=== PATIENT | female | born 1995 | race African-American/Black ===

== ENCOUNTER 2018-04-29 12:54 | Emergency (ER) | payer MEDICAID ==
[~2018-04-29] VITALS: Ht 165.1 cm; Wt 80.0 kg
[2018-04-29 14:38] LABS: BASOPHILS % 0.3 % (0.0-2.0); EOSINOPHILS % 1.8 % (0.0-5.0); HEMATOCRIT. 35.2 % (36.0-48.0); HEMOGLOBIN. 12.2 g/dL (12.0-16.0); LYMPHOCYTES % 14.1 % (20.0-50.0); MEAN CORPUSCULAR HEMOGLOBIN 32.6 pg (28.0-32.0); MEAN CORPUSCULAR VOLUME 94.1 fL (81.0-99.0); MEAN PLATELET VOLUME 7.6 fl (7.4-10.4); MONOCYTES % 9.5 % (2.0-8.0); NEUTROPHILS % 74.3 % (40.0-76.0); PLATELET 310 x1000/uL (130-400); RED BLOOD CELL COUNT 3.74 mill/uL (4.2-5.4); RED CELL DISTRIBUTION WIDTH 12.2 % (11.6-14.6)
[2018-04-29 14:43] LABS: PROTHROMBIN TIME 10.4 sec (9.1-11.1)
[2018-04-29 14:45] LABS: CHLORIDE 103 mEq/L (98-107)
[2018-04-29 15:08] LABS: B-HCG QUANTITATIVE 47057 mIU/mL (<3)
[2018-04-29 15:16] LABS: CLARITY URINE CLOUDY (CLEAR); COLOR URINE RED (YELLOW); KETONES URINE NEGATIVE (NEGATIVE); LEUKOCYTE ESTERASE URINE 3+ (NEGATIVE); NITRITE URINE NEGATIVE (NEGATIVE); OCCULT BLOOD URINE 3+ (NEGATIVE); PH URINE 6.5 (4.5-8.0); PROTEIN URINE TRACE (NEGATIVE); SPECIFIC GRAVITY URINE 1.006 (1.005-1.030); UROBILINOGEN URINE 0.2 E.U./dL (0.2-1.0)
[2018-04-29 15:33] LABS: *AMPHETAMINES SCREEN URINE NEGATIVE (NEGATIVE); *BARBITURATES SCREEN URINE NEGATIVE (NEGATIVE); *BENZODIAZEPINES SCREEN URINE NEGATIVE (NEGATIVE)
[2018-04-29 15:34] LABS: *COCAINE SCREEN URINE NEGATIVE (NEGATIVE); CANNABINOID URINE SCREEN NEGATIVE (NEGATIVE); METHADONE URINE SCREEN NEGATIVE (NEGATIVE); OPIATES URINE SCREEN NEGATIVE (NEGATIVE); PHENCYCLIDINE URINE SCREEN NEGATIVE (NEGATIVE)
[2018-04-29] MEDS ORDERED: METRONIDAZOLE 500MG TABLET PO ONE (17:15)
[2018-04-29 17:50] VITALS: BP 118/57
== END 2018-04-29 17:50 | disposition home or self-care (01) ==
LOC: ER 15:38
DX: O20.0 Threatened abortion (principal); O26.891 Other specified pregnancy related conditions, first trimester; A59.9 Trichomoniasis, unspecified; O23.41 Unspecified infection of urinary tract in pregnancy, first trimester; Z3A.13 13 weeks gestation of pregnancy
CPT/HCPCS: 36415; 76801; 80048; 80305; 81025; 84702; 86850; 86900; 99285; J7030

== ENCOUNTER 2019-01-01 18:59 | Emergency (ER) | payer MEDICAID ==
[~2019-01-01] VITALS: Ht 167.6 cm; Wt 70.0 kg
[2019-01-01] MEDS ORDERED: ACETAMINOPHEN 325MG TABLET PO PRN (20:15)
[2019-01-01 20:34] LABS: BASOPHILS % 0.8 % (0.0-2.0); EOSINOPHILS % 3.3 % (0.0-5.0); HEMATOCRIT. 36.3 % (36.0-48.0); HEMOGLOBIN. 12.4 g/dL (12.0-16.0); LYMPHOCYTES % 31.9 % (20.0-50.0); MEAN CORPUSCULAR HEMOGLOBIN 31.9 pg (28.0-32.0); MEAN CORPUSCULAR VOLUME 93.9 fL (81.0-99.0); MEAN PLATELET VOLUME 7.5 fl (7.4-10.4); MONOCYTES % 10.7 % (2.0-8.0); NEUTROPHILS % 53.3 % (40.0-76.0); PLATELET 321 x1000/uL (130-400); RED BLOOD CELL COUNT 3.87 mill/uL (4.2-5.4); RED CELL DISTRIBUTION WIDTH 12.9 % (11.6-14.6)
[2019-01-01 20:40] LABS: CHLORIDE 103 mEq/L (98-107)
[2019-01-01 20:52] LABS: CLARITY URINE CLOUDY (CLEAR); COLOR URINE YELLOW (YELLOW); KETONES URINE NEGATIVE (NEGATIVE); LEUKOCYTE ESTERASE URINE 3+ (NEGATIVE); NITRITE URINE NEGATIVE (NEGATIVE); OCCULT BLOOD URINE NEGATIVE (NEGATIVE); PROTEIN URINE NEGATIVE (NEGATIVE); SPECIFIC GRAVITY URINE 1.014 (1.005-1.030); UROBILINOGEN URINE 0.2 E.U./dL (0.2-1.0)
[2019-01-01 21:04] LABS: B-HCG QUANTITATIVE 60848 mIU/mL (<3)
[2019-01-01 23:07] VITALS: BP 101/52
== END 2019-01-01 23:10 | disposition home or self-care (01) ==
LOC: ER 18:59
DX: O26.891 Other specified pregnancy related conditions, first trimester (principal); O23.41 Unspecified infection of urinary tract in pregnancy, first trimester; A59.9 Trichomoniasis, unspecified; R10.84 Generalized abdominal pain; Z3A.01 Less than 8 weeks gestation of pregnancy; V43.52XA Car driver injured in collision with other type car in traffic accident, initial encounter; Y93.89 Activity, other specified; Y92.488 Other paved roadways as the place of occurrence of the external cause
CPT/HCPCS: 36415; 76801; 81025; 84702; 86850; 86900; 99284